=== PATIENT | female | born 1955 | race Caucasian/White ===

== ENCOUNTER 2019-01-17 06:22 | Day surgery (SDC) | payer OTHER ==
[2019-01-17] MEDS ORDERED: Ketamine HCl 50 MG/ML IV ONE (06:23)
[2019-01-17] MEDS ORDERED: DIPRIVAN 200 MG/20 ML IV ONE (06:23)
[2019-01-17] MEDS ORDERED: Lactated Ringers 1,000 ML IV SCH (07:00)
[2019-01-17 10:50] VITALS: BP 129/91; PULSE 62; O2SAT 94
--- NOTE | 2019-01-19 09:38 | HP ---
DATE OF SURGERY: 01/17/2019 ANTICIPATED PROCEDURE: Colonoscopy. HISTORY OF PRESENT ILLNESS: Patient presents for five year colonoscopy for polyps. She has no symptoms. PAST MEDICAL HISTORY: ALLERGIES: NONE. MEDICATIONS: Clonazepam, fluticasone. PAST SURGICAL HISTORY: None. SOCIAL HISTORY: Negative. FAMILY HISTORY: Negative. REVIEW OF SYSTEMS: Negative. PHYSICAL EXAMINATION: VITAL SIGNS: Normal. CHEST: Clear. COR: Regular. ABDOMEN: Satisfactory. IMPRESSION: Five year follow up for polyps. PLAN: Colonoscopy.
--- NOTE | 2019-01-19 10:32 | OP ---
SURGERY DATE/TIME: 01/17/2019 0909 PREOPERATIVE DIAGNOSIS: Five year follow up of polyps. POSTOPERATIVE DIAGNOSIS: Satisfactory, moderate diverticulosis. PROCEDURE: Colonoscopy complete to cecum. SURGEON: John Farmer M.D. ANESTHESIA: MAC COMPLICATIONS: None. CONDITION: Stable. INDICATION: Her father did have significant rectal cancer at age 60. DESCRIPTION OF PROCEDURE: Taken to endoscopy. Left lateral decubitus position. Anal digital examination satisfactory. Scope introduced. Scope advanced to the cecum. There was a fair amount of angulation in the sigmoid and there was a moderate amount of diverticulosis. Base of cecum, ileocecal valve and appendiceal orifice satisfactory. Ascending, hepatic, transverse, splenic satisfactory. Sigmoid angulated and diverticula. Rectum-anus satisfactory. Normal today. Plan for five year follow up with history of polyps and she does have a significant family history of polyps and she does have a significant family history of immediate family member with rectal cancer.
== END 2019-01-17 10:30 | disposition home or self-care (01) ==
LOC: SDC 06:22
PROVIDERS: ATTEND Surgery
DX: Z12.11 Encounter for screening for malignant neoplasm of colon (principal); K57.30 Diverticulosis of large intestine without perforation or abscess without bleeding; Z86.010 Personal history of colon polyps; Z80.0 Family history of malignant neoplasm of digestive organs; Z83.71 Family history of colonic polyps
CPT/HCPCS: J2704

== ENCOUNTER 2023-05-23 10:04 | Day surgery (SDC) | payer MEDICARE, OTHER ==
--- NOTE | 2023-05-17 17:50 | HP ---
DATE: 05/23/2023 HISTORY OF PRESENT ILLNESS: Patient is a 67 year-old female who presents with complaints of dysphagia. She has tried Prilosec and that has not helped. She does have some belching, bloating, and gas. She has some pressure on her lower abdomen from this. She has progressive constipation. PAST MEDICAL HISTORY: Dysphagia, gastroesophageal reflux disease, obesity, anxiety, gastritis. CURRENT MEDICATIONS: None reported. ALLERGIES: NONE. PAST SURGERIES: Hysterectomy, she had brain surgery for removal of a benign meningioma, she had nephrectomy for donation. SOCIAL HISTORY: Negative. FAMILY HISTORY: Hypertension, prostate cancer, diabetes. REVIEW OF SYSTEMS: CONSTITUTIONAL: Denies fever or chills. CHEST: Denies shortness of breath. CVS: Denies chest pain. ABDOMEN: Denies abdominal pain. PHYSICAL EXAMINATION: GENERAL: No acute distress. CHEST: Nonlabored. No shortness of breath. CVS: Regular rate and rhythm. ABDOMEN: Soft. IMPRESSION: 1. DYSPHAGIA, BELCHING, BLOATING, EXCESS GAS. PLAN: EGD and colonoscopy with Dr. Mark. Farmer. This report was dictated for Dr. Farmer by Ammy Avila NP.
[2023-05-23] MEDS ORDERED: Lactated Ringers 1,000 ML IV SCH (10:30)
[2023-05-23] MEDS ORDERED: Xylocaine-Mpf 2% 5 Ml Vial ONE (11:38)
[2023-05-23] MEDS ORDERED: Versed 2 MG/2 ML Injection ONE (11:38)
[2023-05-23] MEDS ORDERED: DIPRIVAN 200 MG/20 ML IV ONE (11:38)
[2023-05-23 13:05] VITALS: BP 164/76; PULSE 65; RESP 16; O2SAT 97
[2023-05-23 13:12] VITALS: TEMP 97
--- NOTE | 2023-05-23 13:17 | OP ---
SURGERY DATE/TIME: 05/23/2023 1142 PREOPERATIVE DIAGNOSIS: Dysphagia, gas, belching, bloating, constipation, change in bowel habits. POSTOPERATIVE DIAGNOSES: 1) Grade 2 over 4 gastroesophageal reflux disease. 2) Hot polypectomy x2 of a 3 mm and a 6 mm polyp. PROCEDURES: 1) EGD. 2) Colonoscopic examination with hot polypectomy x2 of a 3 mm and a 6 mm polyp. SURGEON: John Farmer M.D. ANESTHESIA: General. COMPLICATIONS: None. CONDITION: Stable. DESCRIPTION OF PROCEDURE: Patient taken to endoscopy. MAC general provided. Pharyngoesophageal junction normal. Esophagus normal down to gastroesophageal junction. Grade 2 over 4 gastroesophageal reflux disease. No hiatal hernia. Fundus, body and antrum normal. Pylorus normal. Duodenal bulb normal. Second portion normal. Scope withdrawn looped upon itself. No hiatal hernia. Scope withdrawn. Anal examination satisfactory. Very mild internal hemorrhoids. Scope introduced. Scope advanced to the cecum. Base of the cecum, ileocecal valve, appendiceal orifice satisfactory. Coming up to the hepatic flexure, a 6 mm polyp taken with hot biopsy forceps. Mid transverse colon 3 mm hot biopsy forceps. Circumferential withdrawal the ascending, sigmoid, rectum, anus satisfactory. Follow up in three years. The patient tolerated the procedure well.
== END 2023-05-23 13:10 | disposition home or self-care (01) ==
LOC: SDC 10:04
PROVIDERS: ATTEND Surgery
DX: K63.5 Polyp of colon (principal); R13.10 Dysphagia, unspecified; R14.3 Flatulence; R14.2 Eructation; R14.0 Abdominal distension (gaseous); K59.00 Constipation, unspecified; Z80.42 Family history of malignant neoplasm of prostate; K64.8 Other hemorrhoids; K21.9 Gastro-esophageal reflux disease without esophagitis
CPT/HCPCS: J2250; J2704